=== PATIENT | male | born 1950 | race Caucasian/White ===

== ENCOUNTER 2016-07-06 14:10 | Emergency (ER) | payer MEDICARE ==
[2016-07-06 16:23] LABS: HEMOGLOBIN 15.3 gm/dl (14.0-17.5); RED BLOOD COUNT 4.88 M/UL (4.20-5.50); WHITE BLOOD COUNT 6.7 K/UL (4.5-11.0)
[2016-07-06 16:40] LABS: BUN/CREATININE RATIO 12 (0-10)
== END 2016-07-06 17:51 | disposition home or self-care (01) ==
LOC: ER1 14:10
PROVIDERS: Physician Assistant
DX: S90.32XA Contusion of left foot, initial encounter (principal); E11.40 Type 2 diabetes mellitus with diabetic neuropathy, unspecified; W20.8XXA Other cause of strike by thrown, projected or falling object, initial encounter
CPT/HCPCS: 36415; 73610; 73630; 80053; 85025; 86140; 99283

== ENCOUNTER 2021-11-20 10:03 | Emergency (ER) | payer MEDICARE ==
[2021-11-20 12:12] LABS: HEMOGLOBIN 14.9 gm/dl (14.0-17.5); RED BLOOD COUNT 4.76 M/UL (4.20-5.50); WHITE BLOOD COUNT 9.4 K/UL (4.5-11.0)
[2021-11-20] MEDS ORDERED: LOTRISONE CREAM15 GM TP (13:36)
[2021-11-20] MEDS ORDERED: CLARITIN10 M2 PO (13:37)
== END 2021-11-20 13:50 | disposition home or self-care (01) ==
LOC: ER1 10:03
PROVIDERS: Physician Assistant
DX: S90.852A Superficial foreign body, left foot, initial encounter (principal); R21 Rash and other nonspecific skin eruption; E11.9 Type 2 diabetes mellitus without complications; I10 Essential (primary) hypertension; Z88.2 Allergy status to sulfonamides; W45.8XXA Other foreign body or object entering through skin, initial encounter
CPT/HCPCS: 73630; 80053; 85025; 93971; 99284